=== PATIENT | male | born 1990 ===

== ENCOUNTER 2024-09-02 18:09 | Emergency (ER) | payer OTHER, SELFPAY ==
[2024-09-02 18:14] VITALS: BP 132/88; PULSE 70; RESP 17; TEMP 36.6; O2SAT 100; BMI 25.1
--- NOTE | 2024-09-02 20:47 | DI.CT.S_ITS ---
PROCEDURE: CT CERVICAL SPINE WO CON INDICATIONS: neck pain after fall TECHNIQUE: Noncontrast 3 mm thick sections acquired from the skull base to the T4 level. Sagittal and coronal reformats were then constructed. For radiation dose reduction, the following was used: automated exposure control, adjustment of mA and/or kV according to patient size. COMPARISON: None. FINDINGS: Image quality: Diagnostic Bones: Mild degenerative changes. No acute vertebral body height loss or traumatic subluxation. Soft tissues: No pathologic prevertebral soft tissue swelling. No apical pneumothorax. IMPRESSION: No displaced fracture or traumatic subluxation. Mild spondylosis. If there is high concern for further derangement, consider MRI evaluation. Dictated by: Chente Wasserman M.D. on 09/02/2024 at 21:03 Approved by: Chente Wasserman M.D. on 09/02/2024 at 21:05
--- NOTE | 2024-09-02 22:26 | ED_ITS ---
HPI - Fall General Chief Complaint: Fall Stated Complaint: Fell at work has [employer] paperwork Time Seen by Provider: 09/02/24 20:47 Source: patient Mode of arrival: Ambulatory History of Present Illness HPI Narrative: 34-year-old male here for evaluation of right side and neck discomfort after he sustained a fall while at work. He states that couple days ago slipped a wet tarp and fell backwards and hit his neck and it on the ground. Has had discomfort in this area since then. Has a difficult time looking up and turning his head to the sides. He occasionally has tingling going down his right arm. No other injuries from the event. He was not on blood thinners. Cervical collar was placed in triage prior to my evaluation. Related Data Previous Rx's Medication Instructions Recorded cyclobenzaprine 10 mg tablet 10 mg PO TID PRN muscle spasm #14 09/02/24 tabs Allergies Allergy/AdvReac Type Severity Reaction Status Date / Time Penicillins Allergy CHILDHOOD Verified 09/02/24 18:14 Sulfa (Sulfonamide Allergy CHILDHOOD Verified 09/02/24 18:14 Antibiotics) novacaine Allergy Facial Uncoded 09/02/24 18:14 swelling Review of Systems Review of Systems Narrative: See HPI Patient History Social History Smoking Status: Former smoker Smoking Status: Former smoker Substance Use Type: marijuana Exam Initial Vital Signs Initial Vital Signs: Vital Signs Temperature 97.9 F 09/02/24 18:14 Pulse Rate 70 09/02/24 18:14 Respiratory Rate 17 09/02/24 18:14 Blood Pressure 132/88 09/02/24 18:14 Pulse Oximetry 100 09/02/24 18:14 Oxygen Delivery Method Room Air 09/02/24 18:14 Const General: cooperative and No ill appearing HENMT Head: normal to inspection and normocephalic Back/Spine/Pelvis Cervical Spine: cervical muscular tenderness and cervical spinal tenderness Thoracic/Lumbar Spine: No paraspinal tenderness and No lumbar spinal tenderness Skin General: no rashes or lesions noted Neuro General: patient alert, patient awake and moves all extremities Extrem General: normal to inspection and capillary refill normal Course Orders Ordered: ED Orders 09/02/24 20:47 CT cervical spine wo con Stat Discontinued Medications Cyclobenzaprine HCl (Cyclobenzaprine 10 Mg Tablet) 10 mg PO NOW ONE Stop: 09/02/24 22:27 Last Admin: 09/02/24 22:35 Dose: 10 mg Documented By: BUCK Cyclobenzaprine HCl (Cyclobenzaprine 10 Mg Prepack) 1 bottle MISC DIRECTED ONE Stop: 09/02/24 22:27 Last Admin: 09/02/24 22:35 Dose: 1 bottle Documented By: BUCK Ketorolac Tromethamine (Ketorolac 30 Mg/Ml Vial) 30 mg IM NOW ONE Stop: 09/02/24 22:27 Last Admin: 09/02/24 22:35 Dose: 30 mg Documented By: BUCK Vital Signs Vital signs: Vital Signs - 8 hr 09/02/24 22:43 Pulse Rate 61 Respiratory Rate 17 Blood Pressure 128/86 Pulse Oximetry 100 Oxygen Delivery Method Room Air MDM - Fall Imaging Data CT - cervical spine: Radiologist's Impression: PROCEDURE: CT CERVICAL SPINE WO CON INDICATIONS: neck pain after fall TECHNIQUE: Noncontrast 3 mm thick sections acquired from the skull base to the T4 level. Sagittal and coronal reformats were then constructed. For radiation dose reduction, the following was used: automated exposure control, adjustment of mA and/or kV according to patient size. COMPARISON: None. FINDINGS: Image quality: Diagnostic Bones: Mild degenerative changes. No acute vertebral body height loss or traumatic subluxation. Soft tissues: No pathologic prevertebral soft tissue swelling. No apical pneumothorax. IMPRESSION: No displaced fracture or traumatic subluxation. Mild spondylosis. If there is high concern for further derangement, consider MRI evaluation. [facility] Narrative Medical decision making narrative: cervical spine CT is unremarkable. I do suspect muscular injury. No bony injury noted on CT scan. I suspect that the tingling that he occasionally gets down his right arms because of the muscle spasms that he was having in his right shoulder region and right paraspinal region. Conservative treatment for now to include Tylenol and ibuprofen. Will also discharge home with muscle relaxers. The symptoms persist he may need further evaluation to include an MRI but this can be either performed by [facility] or his primary provider. Patient was given return precautions. Discharge Plan Departure Patient Disposition: Home Clinical Impression: Cervical muscle strain Instructions: DI for Cervical Muscle Strain Activity Restrictions/Additional Instructions: Recommend conservative measures to include heat and ice, stretching, massage, anti-inflammatories and muscle relaxers. I suspect that your symptoms will improve over the next week. If you have persistent symptoms to include tingling down into your arm and hand after the next 7-10 days you may require further evaluation to include an MRI. This will be ordered by either your primary doctor or through [facility]. Return to the emergency department for new symptoms. Prescriptions: New cyclobenzaprine 10 mg tablet 10 mg PO TID PRN (Reason: muscle spasm) Qty: 14 0RF Stand Alone Forms: Patient Portal/API/Survey
[2024-09-02] MEDS: KETOROLAC 30 MG/ML VIAL IM (22:35)
[2024-09-02] MEDS: CYCLOBENZAPRINE 10 MG TABLET PO (22:35)
[2024-09-02] MEDS: CYCLOBENZAPRINE 10 MG PREPACK 1 BOTTLE MISC (22:35)
[2024-09-02 22:43] VITALS: BP 128/86; PULSE 61; RESP 17; O2SAT 100
== END 2024-09-02 22:47 | disposition home or self-care (01) ==
PROVIDERS: Emergency Provider Emergency Medicine
DX: S16.1XXA Strain of muscle, fascia and tendon at neck level, initial encounter (principal); W18.30XA Fall on same level, unspecified, initial encounter
CPT/HCPCS: 72125; 96372; 99283; 99284; J1885